=== PATIENT | male | born 1955 | race Caucasian/White ===

== ENCOUNTER 2021-06-26 08:14 | Inpatient (IN) | payer OTHER ==
[2021-06-26] VITALS (25 sets, daily range): BP systolic 98–173; BP diastolic 46–97
[~2021-06-26] VITALS: Ht 167.6 cm; Wt 40.4 kg
[2021-06-26] MEDS ORDERED: LORAZEPAM INJ 2 MG/ML VIAL ONE (08:16)
--- NOTE | 2021-06-26 08:19 | NUR ---
PT INTUBATED USING 7.5 ET. AT 20 AT THE LIP. POSITIVE COLOR CHANGE ON THE CAPTOMETER W/ EQUAL CHEST RISE NOTED. 0822- EPI GIVEN 0823- CALCIUM GIVEN, NOTED V TACH RATE 137 0828- AMIODARONE GIVEN 0831- CALCIUM GIVEN 0835- STARTED ON MAGNESIUM MAGNESIUM 2GMS 0844- LEVOPHED DRIP STARTED AT 1MCG/KG/MIN 0845- EPI GIVEN
--- NOTE | 2021-06-26 08:26 | NUR ---
ICU BED REQUESTED.
[2021-06-26] MEDS ORDERED: CALCIUM CHLORIDE 1,000 MG/10 ML DISP.SYRIN ONE (08:30)
[2021-06-26] MEDS ORDERED: PIPERACILLIN /TAZOBACTAM 3.375 G in IV D5W 50 ML IV ONE (08:30)
[2021-06-26] MEDS ORDERED: CALCIUM CHLORIDE 1,000 MG/10 ML DISP.SYRIN IV ONE ×3 (08:30→12:53)
[2021-06-26] MEDS ORDERED: ETOMIDATE 2 MG/ML VIAL IV ONE ×2 (08:30→12:55)
[2021-06-26] MEDS ORDERED: VANCOMYCIN HCL 1.25 GM in IV D5W 260 ML IV ONE (08:30)
[2021-06-26] MEDS ORDERED: LORAZEPAM INJ 2 MG/ML VIAL IV ONE (08:30)
[2021-06-26] MEDS ORDERED: ROCURONIUM BROMIDE 50 MG/5 ML IV ONE ×2 (08:30→12:55)
[2021-06-26] MEDS ORDERED: Magnesium 1GM/D5W 100ML PREMIX 200 ML IV ONE (08:32)
[2021-06-26] MEDS: Magnesium 1GM/D5W 100ML PREMIX 100 ML IV SCH (08:35)
--- NOTE | 2021-06-26 08:40 | NUR ---
RT NOTE PT ORALLY INTUBATED VIA 7.5 ETT @ 20CM LIPLINE BY MD ELIAS. BILATERAL BREATH SOUNDS AND CHEST RISE NOTED. POSITIVE COLOR CHANGE CO2 DETECTOR. ETT PATENT AND SECURED VIA ANCHOR FAST. VENT PLUGGED INTO RED OUTLET. AMBU BAG AT BEDSIDE. ALARMS ARE ON AND AUDIBLE. WILL CONTINUE TO MONITOR.
[2021-06-26 08:44] LABS: BASOPHILS % (AUTO) 0.4 % (0.0-2.0); EOSINOPHILS % (AUTO) 0.8 % (0.0-6.0); HEMATOCRIT 30 % (39-51); HEMOGLOBIN 9.4 g/dL (13.5-17.5); LYMPHOCYTES # (AUTO) 0.8 K/uL (0.8-4.8); LYMPHOCYTES % (AUTO) 6.9 % (20.0-44.0); MEAN CORPUSCULAR HGB CONC 32 g/dl (31.0-36.0); MEAN CORPUSCULAR VOLUME 95 fL (80-96); MONOCYTES # (AUTO) 0.5 K/uL (0.1-1.30); MONOCYTES % (AUTO) 4.1 % (2.0-12.0); NEUTROPHILS # (AUTO) 9.9 K/uL (1.8-8.9); NEUTROPHILS % (AUTO) 87.8 % (43.0-81.0); PLATELET COUNT (AUTO) 319 K/uL (150-450); RED BLOOD CELL COUNT(AUTO) 3.14 MIL/uL (4.5-6.0); WHITE BLOOD COUNT (AUTO) 11.3 K/uL (4.3-11.0)
--- NOTE | 2021-06-26 08:55 | NUR ---
SEE CPR RECORD
[2021-06-26 08:59] LABS: ALANINE AMINOTRANSFERASE 26 U/L (12-78); ALKALINE PHOSPHATASE 518 U/L (46-116); ASPARTATE AMINOTRANSFERASE 52 U/L (15-37); BILIRUBIN,DIRECT 0.5 mg/dL (0.0-0.2); BILIRUBIN,TOTAL 0.8 mg/dL (0.2-1.0); CALCIUM, SERUM 12.1 mg/dL (8.5-10.1); CARBON DIOXIDE 15 mmol/L (21-32); CHLORIDE 98 mmol/L (98-107); GLUCOSE 122 mg/dL (74-106); SODIUM SERUM 137 mmol/L (136-145); TOTAL PROTEIN, SERUM 8.8 g/dL (6.4-8.2)
[2021-06-26] MEDS ORDERED: EPINEPHRINE (1:1000) 5 MG in IV NS 0.9% 250 ML IV PRN (09:00)
[2021-06-26] MEDS ORDERED: IV LIDOCAINE HCL/D5W/PF/500ML 2,000 MG in PREMIX 1 EA IV PRN (09:00)
[2021-06-26] MEDS ORDERED: NOREPINEPHRINE 8 MG in IV NS 0.9% 250 ML IV ONE (09:00)
[2021-06-26] MEDS ORDERED: PROCAINAMIDE HCL 500 MG/ML VIAL IVP ONE (09:00)
[2021-06-26] MEDS ORDERED: AMIODARONE 450 MG in IV D5W 250 ML IV ONE (09:00)
--- NOTE | 2021-06-26 09:02 | NUR ---
PAGED DR. COBB. NOW HAS SPOKEN TO DR. ELIAS
[2021-06-26 09:17] LABS: CREATININE 8.5 mg/dL (0.6-1.3); POTASSIUM 7.3 mmol/L (3.5-5.1); UREA NITROGEN, BLOOD 122 mg/dL (7-18)
--- NOTE | 2021-06-26 09:25 | NUR ---
PAGED DR. HOOVER. NOW SPEAKING TO DR. ELIAS.
--- NOTE | 2021-06-26 09:32 | NUR ---
ETA 12NOON FOR PICCLINE NURSE PER NURSING FOUNDER.
[2021-06-26 09:36] LABS: SERUM AMMONIA 39 umol/L (11-32)
[2021-06-26] MEDS ORDERED: HEPARIN SUBCUT (09:37)
[2021-06-26] MEDS ORDERED: SEVE800T8 PO (09:37)
[2021-06-26] MEDS ORDERED: FERR325T23 PO (09:37)
[2021-06-26] MEDS ORDERED: VANCOMYCIN PO (09:37)
[2021-06-26] MEDS ORDERED: FOLI0.8T2 PO (09:37)
[2021-06-26] MEDS ORDERED: TAMS-12 PO (09:37)
[2021-06-26] MEDS ORDERED: LABE100T5 PO (09:37)
[2021-06-26] MEDS ORDERED: MAGN400O6 PO (09:37)
[2021-06-26] MEDS ORDERED: INSU100V3 IJ (09:37)
[2021-06-26] MEDS ORDERED: FOLI0.8T3 PO (09:37)
[2021-06-26] MEDS ORDERED: SODI10PO PO (09:37)
[2021-06-26] MEDS ORDERED: ERGO500093 PO (09:37)
[2021-06-26] MEDS ORDERED: OMEP20TA20 PO (09:37)
[2021-06-26] MEDS ORDERED: NIFE60TA73 PO (09:37)
[2021-06-26] MEDS ORDERED: ACET325T53 PO (09:37)
[2021-06-26] MEDS ORDERED: RIFA300C4 PO (09:37)
[2021-06-26] MEDS ORDERED: SENN-175 PO (09:37)
[2021-06-26] MEDS ORDERED: HYDR-4303 PO (09:37)
[2021-06-26 09:52] LABS: ABG OXYGEN SATURATION 98.4 % (92.0-98.5); ABG PCO2 41.8 mmHg (35.0-45.0); ABG PH 7.004 (7.350-7.450); ABG PO2 319.6 mmHg (75.0-100.0); AaDO2 351.6 mmHg; COHb 0.2 % (0.5-1.5); O2Hb 98.2 % (94.0-97.0); PEEP,BG 5 cm H2O; SITE, ABG Right Radial; VT, ABG 450 mL
--- NOTE | 2021-06-26 10:00 | NUR ---
PAGED DR. DAVID. NOW SPEAKING TO DR. ELIAS.
[2021-06-26] MEDS ORDERED: EPINEPHRINE (1:10,000) SYRINGE 1 MG/10 ML DISP.SYRIN IV ONE ×2 (10:30)
--- NOTE | 2021-06-26 10:40 | NUR ---
PICC LINE INSERTED ON HUNG
--- NOTE | 2021-06-26 11:20 | NUR ---
DR. DAVID AT BEDSIDE.
--- NOTE | 2021-06-26 11:50 | NUR ---
RECEIVED PT FROM ER VIA [facility] ACCOMPANIED BY NURSE AND RT PT IS ORALLY INTUBATED, VENT SETTING MD ORDER FIO2 50% SPO2 94% NO SIGN OF DISTRESS, PT IS REACTING TO DEEP STIMULI CURRENTLY PT IS NOT ON SEDATION, BREATHING IS UNLABORED SAFELY TRANSFER FROM [facility] TO BED, HOOKED TO MONITOR WITH READING SINUS OBED 40-50 WITH INVERTED TWAVE, PT IS WITH ONGOING AMIODARONE @ 1MG/MIN INFUSING VIA HUNG PICC LINFUSING WELL, ASK DIE CAST ENGINEER WHATS THE DR SAYS ABOUT THE AMIODARONE DUE TO PT HR IS ON LOW 50'S PER KITTY DAVID SAID THAT AMIODAONE WILL BE CONTINUE UNTIL PT GET HIS DIALYSIS EVEN THOUGH PT HR IS ON LOW 50'S, HEAD TO TOE ASSESSMENT DONE, V/S CHECKED AND RECORDED, INITIAL ADMISSION DONE, ACUTE MEDICAL RESTRAINTS INITIATED PER MD ORDER FOR SELF EXTUBATION PRECAUTION, BED ON LOWEST POSITION AND LOCKED SIDE RAILS UP X2 CALL LIGHT WITHIN REACH WILL CONT TO MONITOR
--- NOTE | 2021-06-26 11:56 | NUR ---
PATIENT TRANSFERRED TO ROOM 260 VIA ACLS PROTOCOL. PATIENT IN GUARDED CONDITION. DIALYSIS NURSE AWARE OF PATIENT'S ROOM #. DR. DAVID GAVE VERBAL INSTRUCTIONS TO KEEP AMIODARONE AT THIS TIME.
[2021-06-26] MEDS ORDERED: DEXTROSE 50%-WATER 50 ML DISP.SYRIN IV PRN (12:00)
[2021-06-26] MEDS: AMIODARONE 450 MG in IV D5W 241 ML IV PRN ×2 (12:00→14:32)
[2021-06-26] MEDS ORDERED: RIFAMPIN 600 MG in IV NS 0.9% 100 ML IV SCH (12:30)
[2021-06-26] MEDS: BLOOD SUGAR DIAGNOSTIC 1 EACH STRIP IN SCH ×3 (12:53→23:36)
[2021-06-26] MEDS: SODIUM POLYSTYRENE SULFONATE 15 G/60 ML BOTTLE PO SCH ×2 (12:53→18:10)
[2021-06-26] MEDS ORDERED: EPINEPHRINE (1:10,000) SYRINGE 1 MG/10 ML DISP.SYRIN IVP ONE (12:53)
[2021-06-26] MEDS ORDERED: AMIODARONE 150 MG/3 ML VIAL IV ONE (12:53)
[2021-06-26] MEDS: INSULIN REGULAR, HUMAN 100 UNIT/ML 3 ML VIAL SQ PRN ×2 (12:54→23:36)
[2021-06-26] MEDS ORDERED: VANCOMYCIN HCL 125 MG/2.5 ML ORAL.SUSP PO SCH (13:00)
[2021-06-26 13:16] LABS: ABG BASE EXCESS -16.5 mmol/L; ABG OXYGEN SATURATION 79.7 % (92.0-98.5); ABG PCO2 24.7 mmHg (35.0-45.0); ABG PH 7.213 (7.350-7.450); ABG PO2 61.2 mmHg (75.0-100.0); AaDO2 267.5 mmHg; COHb 0.4 % (0.5-1.5); MetHb 0.3 % (0.0-1.5); O2Hb 79.1 % (94.0-97.0); SITE, ABG Right Radial; VT, ABG 480 mL
--- NOTE | 2021-06-26 13:50 | NUR ---
REPORTED TO DR DAVID THAT PT IS STARTING TO WAKE UP AND HE IS BECOMING TACHYPNEIC WITH ORDER TO START PROPOFOL TO TITRATE PER PROTOCOL, ALSO HE ORDER HEPARIN 5000 UNITS Q12H AND PEPCID 10 MG Q12H NOTED AND CARRIED OUT
[2021-06-26] MEDS: VANCOMYCIN HCL 125 MG/2.5 ML ORAL.SUSP GT SCH ×3 (13:53→23:31)
[2021-06-26] MEDS: PROPOFOL 100 ML IV PRN ×2 (14:30→22:30)
[2021-06-26] MEDS: RIFAMPIN 300 MG CAPSULE GT SCH (14:59)
--- NOTE | 2021-06-26 15:53 | NUR ---
RECEIVED ORDER TO DR DAVID THAT MAY STOP AMIODARONE ONCE HD COMPLETED TODAY NOTED AND CARRIED OUT
--- NOTE | 2021-06-26 16:49 | NUR ---
HD COMPLETED, TOLERATING WELL TOTAL FLUID REMOVED 1700 ML, VS CHECKED AND RECORDED NO DISTRESS NOTED, MAY DC AMIODARONE DRIP WILL STOP NOW PER MD ORDER, WILL CONT TO MONITOR
[2021-06-26] MEDS: PIPERACILLIN /TAZOBACTAM 2.25 G in IV D5W 50 ML IV SCH (18:11)
[2021-06-26] MEDS: IV D5/0.45 NACL 1,000 ML IV PRN (18:54)
--- NOTE | 2021-06-26 19:30 | NUR ---
RN OPENING NOTES: RECEIVED SEDATED PT IN NO S/SX OF ACUTE DISTRESS AT THIS TIME. NO SOB NOTED. PATIENT'S BREATHING IS EVEN AND UNLABORED. PATIENT ON MECHANICAL VENT; SETTINGS PRESCRIBED; PT TOLERATED WELL. AMBU BAG AT BED SIDE ALARMS SET PER PROTOCOL AND AUDIBLE. VENT PLUGGED IN TO RED OUTLET. PATIENT ON TELE MONITORING READING SINUS RHYTHM HR IS @70s AT THE TIME OF RECEIVED. CURRENTLY ON NPO. WITH OGT IN PLACED; PLACEMENT VERIFIED VIA AUSCULTATION; CLAMPED AT THIS TIME. NOTED IV SITE: L AC#18 , R FA #18 AND L UA PICC LINE ; ALL PATENT, INTACT AND FLUSHING WELL; NO S/S OF INFECTION OR INFILTRATION. WITH IV FLUID RUNNING ORDERED. PT ALSO HAS L CHEST WALL HD CATH SECURED AND INTACT NO SIGNS OF INFECTION. PT HAS A RUNNING PROPOFOL AT 35MCG/KG/MIN MONITORED AND TITRATED PER PROTOCOL. DAVIS CATH IN PLACE,NO URINE OUTPUT NOTED. WITH BILATERAL SOFT RESTRAINTS IN PLACED, MONITORED AND ASSESSED PER PROTOCOL. SAFETY MEASURES HAVE BEEN PROVIDED AND IMPLEMENTED. PATIENT BED ALARM IS ON. HEAD OF BED ELEVATED. BED IS LOCKED, IN LOWEST POSITION AND SIDE RAILS UP. CALL LIGHT WITHIN REACH OF THE PATIENT. APPLICABLE ISOLATION PRECAUTIONS IN PLACE. WILL CONTINUE TO MONITOR AND REASSESS FOR ANY CHANGES AND WILL CARRY OUT ANY ONGOING AND ACTIVE MD ORDER.
--- NOTE | 2021-06-26 20:01 | NUR ---
RECEIVED PT INTUBATED ON [facility] VENT. ETT IS SECURED AT 23CM LIP LINE. VENT ALARMS SET AND AUDIBLE. SX'D SMALL AMT OF THIC YELLOW SECRETIONS. VENT PLUGGED INTO RED OUTLET. Addendum: 06/26/21 at 2002 by ADRIANNA ESTRADA RT Amended: Links added.
[2021-06-26] MEDS: FAMOTIDINE/PF INJ 20 MG/2 ML VIAL IV SCH (21:19)
[2021-06-26] MEDS: HEPARIN SODIUM, PORCINE 5000 UNITS/1 ML VIAL SQ SCH (21:23)
[2021-06-27] VITALS (42 sets, daily range): BP systolic 117–176; BP diastolic 57–84
--- NOTE | 2021-06-27 | NUR ---
RN NOTES PATIENT REMAINED TO BE IN NO SIGNS OF ACUTE RESPIRATORY DISTRESS , VITAL SIGNS WNL THIS TIME; CURRENT TEMP AT 99.4; COOLING MEASURES RENDERED. PAPER DELIVERER MADE AWARE. WILL CONTINUE TO MONITOR AND REASSESS FOR ANY CHANGES THROUGHOUT THE SHIFT.
[2021-06-27] MEDS: PIPERACILLIN /TAZOBACTAM 2.25 G in IV D5W 50 ML IV SCH ×3 (01:03→17:26)
--- NOTE | 2021-06-27 04:00 | NUR ---
RN NOTES NO NOTED CHANGES IN PATIENT CONDITION AT THIS TIME; PATIENT VITALS STABLE, NO SIGNS OF ACUTE RESPIRATORY DISTRESS. AM PATIENT CARE RENDERED. WILL CONTINUE TO MONITOR AND REASSESS FOR ANY CHANGES THROUGHOUT THE SHIFT.
[2021-06-27 05:05] LABS: THYROID STIMULATING HORMONE 3.516 uIU/mL (0.358-3.74)
[2021-06-27] MEDS: VANCOMYCIN HCL 125 MG/2.5 ML ORAL.SUSP GT SCH ×3 (05:08→17:25)
[2021-06-27] MEDS: BLOOD SUGAR DIAGNOSTIC 1 EACH STRIP IN SCH ×3 (05:16→18:16)
[2021-06-27] MEDS: INSULIN REGULAR, HUMAN 100 UNIT/ML 3 ML VIAL SQ PRN (05:16)
[2021-06-27 05:17] LABS: BILIRUBIN,TOTAL 0.8 mg/dL (0.2-1.0); CALCIUM, SERUM 7.5 mg/dL (8.5-10.1); CREATININE 4.3 mg/dL (0.6-1.3); MAGNESIUM 2.1 mg/dL (1.8-2.4); PHOSPHORUS 3.9 mg/dL (2.5-4.9); POTASSIUM 3.6 mmol/L (3.5-5.1); TOTAL PROTEIN, SERUM 6.3 g/dL (6.4-8.2)
--- NOTE | 2021-06-27 05:45 | NUR ---
RN NOTES RECEIVED CRITICAL LAB FROM [facility] (LAB) TROPONIN LEVEL @ 0.455. NOTIFIED DR DAVID; NO NEW ORDERS. BRAKE LINER MADE AWARE.
--- NOTE | 2021-06-27 05:51 | NUR ---
FiO2 titrated to 40% RN notified. O2 sat 100%.
[2021-06-27] MEDS: IV D5/0.45 NACL 1,000 ML IV PRN (06:01)
[2021-06-27] MEDS: PROPOFOL 100 ML IV PRN ×2 (06:13→15:00)
--- NOTE | 2021-06-27 06:51 | NUR ---
RN CLOSING NOTE: PATIENT REMAINS IN ROOM IN NO SIGNS OF RESPIRATORY DISTRESS, PATIENT STILL ON MECH VENT; SETTINGS PRESCRIBED;TOLERATING WELL SATURATING @ >95% SP02. SAFETY MEASURES IMPLEMENTED, BED IN LOWEST POSITION, LOCKED, SIDE RAILS UP, CALL LIGHT WITHIN REACH. ALL NEEDS AND ORDERS ADDRESSED DURING THE SHIFT. IV ACCESS MAINTAINED INTACT, SECURED AND FLUSHING WELL. ALL DUE MEDS GIVEN ORDERED & SCHEDULED ; PATIENT TOLERATED WELL. STILL WITH ONGOING PROPOFOL DRIP @35MCG/KG/MIN (9.5MLS/HR) RUNNING,MONITORED AND TITRATED PER PROTOCOL. PATIENT KEPT CLEAN AND COMFORTABLE WITHIN THE SHIFT. PATIENT ENDORSED TO INCOMING SHIFT RN WITH STABLE VITAL SIGN AND FOR CONTINUITY OF CARE.
--- NOTE | 2021-06-27 07:44 | NUR ---
NURSE OPENING NOTE. RECEIVE REPORT FROM EVENING SHIFT NURSE. PATIENT ON ETT WITH AC:28, TV:480, FIO2:50% PEEP:0. PATIENT IS SEDATED ON PROPOFOL AT 35MCG. NO SIGN OF DISTRESS. DAVIS IN PLACE. CURRENTLY NO DIET ORDER. BED IN LOWEST POSITION WITH 3 SIDE RAIL UP. HEAD OF THE BED ELEVATED. WILL CONTINUE TO MONITOR.
[2021-06-27 08:05] LABS: ABG BASE EXCESS 1.2 mmol/L; ABG OXYGEN SATURATION 97.6 % (92.0-98.5); ABG PCO2 24.3 mmHg (35.0-45.0); ABG PH 7.586 (7.350-7.450); AaDO2 126.3 mmHg; COHb 0.3 % (0.5-1.5); MetHb 0.1 % (0.0-1.5); O2Hb 97.2 % (94.0-97.0); SITE, ABG Right Radial; VENT MODE, BG AC 28 480 40%
[2021-06-27 08:15] LABS: BASOPHILS # (AUTO) 0.1 K/uL (0.0-0.2); EOSINOPHILS % (AUTO) 0.4 % (0.0-6.0); MEAN CORPUSCULAR HGB CONC 33 g/dl (31.0-36.0)
--- NOTE | 2021-06-27 09:00 | NUR ---
HEARING THERAPY TEACHER NOTES SEDATION VACATION
--- NOTE | 2021-06-27 09:16 | NUR ---
RN NOTES ABG RESULT RELAYED TO DR. SAMUEL. VENT CHANGE AC [address] SAMUEL ON VACATION. DR SALAZAR TO TAKE OVER.
[2021-06-27 09:19] LABS: BASOPHILS % (AUTO) 0.7 % (0.0-2.0); HEMATOCRIT 23 % (39-51); HEMOGLOBIN 7.4 g/dL (13.5-17.5); LYMPHOCYTES # (AUTO) 0.5 K/uL (0.8-4.8); LYMPHOCYTES % (AUTO) 3.5 % (20.0-44.0); MEAN CORPUSCULAR VOLUME 90 fL (80-96); MONOCYTES # (AUTO) 0.5 K/uL (0.1-1.30); MONOCYTES % (AUTO) 3.8 % (2.0-12.0); NEUTROPHILS % (AUTO) 91.6 % (43.0-81.0); PLATELET COUNT (AUTO) 285 K/uL (150-450); RED BLOOD CELL COUNT(AUTO) 2.52 MIL/uL (4.5-6.0); WHITE BLOOD COUNT (AUTO) 13.1 K/uL (4.3-11.0)
[2021-06-27] MEDS: FAMOTIDINE/PF INJ 20 MG/2 ML VIAL IV SCH ×2 (09:32→21:09)
[2021-06-27] MEDS: RIFAMPIN 300 MG CAPSULE GT SCH (09:32)
[2021-06-27] MEDS: HEPARIN SODIUM, PORCINE 5000 UNITS/1 ML VIAL SQ SCH ×2 (09:34→21:10)
--- NOTE | 2021-06-27 10:00 | NUR ---
RN NOTES DR. DAVID AT BEDSIDE. PLAN TO WEAN PATIENT AND FOR EXTUBATION. WAITING FOR CORRECTIONAL PROGRAM OFFICER
--- NOTE | 2021-06-27 11:00 | NUR ---
RN NOTES JACKI HELD FOR NOW. DR. SALAZAR TO SEE PATIENT.
--- NOTE | 2021-06-27 14:00 | NUR ---
RN NOTES JCAKI RESUMED
--- NOTE | 2021-06-27 18:46 | NUR ---
NURSE CLOSING NOTE PATIENT STABLE THROUGH OUT SHIFT. ALL DAY SHIFT MEDICATION WAS GIVEN. PROPOFOL DRIP LINE WAS CHANGED PER PROTOCOL. MAINTENANCE IV FLUID WAS CHANGED PER DOCTOR ORDER FROM 75ML/HR TO 50ML/HR. ALL VITAL SIGNS AND I&O HAVE BE DOCUMENTED. PATIENT ORAL GASTRIC TUBE RESIDUAL AT 17:00 WAS 80ML. ALL LINEN WAS CHANGED. GOWN WAS CHANGED. PATIENT WAS GIVEN A BED BATH. SKIN CLEAN AND INTACT. ALL SAFETY MEASURE IN PLACE. BED ON LOWEST POSITION WITH 3 SIDE RAIL UP. HEAD OF THE BED ELEVATED. PROPER ISOLATION PRECAUTION IN PLACE. WILL CONTINUE TO MONITOR AND ENDORSE TO ON COMING NURSE.
--- NOTE | 2021-06-27 20:00 | NUR ---
Patient sedated on diprivan gtt at 35 mcg.Orally intubated to mechanical vent on full vent support. No acute distress noted.SR per monitor.VS stable.OGT in place placement verified by auscultation and aspiration.Aspiration precaution maintained with HOB elevated.NPO status.FC to gravity no urine output noted at this time.HD patient with HD cath to left upper chest intact.IVF and Diprivan gtt infusing via HUNG PICC Line.Turned and repositioned off loading pressure points.
[2021-06-28] VITALS (25 sets, daily range): BP systolic 119–188; BP diastolic 59–103
--- NOTE | 2021-06-28 | NUR ---
Patient vs remains stable.No acute distress noted.Incontinent of stools perineal and bed bath rendered. Turned and repositioned.
[2021-06-28] MEDS: BLOOD SUGAR DIAGNOSTIC 1 EACH STRIP IN SCH ×4 (00:10→18:02)
[2021-06-28] MEDS: VANCOMYCIN HCL 125 MG/2.5 ML ORAL.SUSP GT SCH ×5 (00:11→23:02)
[2021-06-28] MEDS: PROPOFOL 100 ML IV PRN ×4 (00:57→23:12)
[2021-06-28] MEDS: IV D5/0.45 NACL 1,000 ML IV PRN ×2 (01:03→21:55)
[2021-06-28] MEDS: PIPERACILLIN /TAZOBACTAM 2.25 G in IV D5W 50 ML IV SCH ×3 (02:05→17:56)
[2021-06-28 04:59] LABS: BASOPHILS # (AUTO) 0.1 K/uL (0.0-0.2); BASOPHILS % (AUTO) 0.9 % (0.0-2.0); EOSINOPHILS % (AUTO) 2.4 % (0.0-6.0); HEMATOCRIT 22 % (39-51); HEMOGLOBIN 7.3 g/dL (13.5-17.5); LYMPHOCYTES # (AUTO) 0.5 K/uL (0.8-4.8); LYMPHOCYTES % (AUTO) 4.9 % (20.0-44.0); MEAN CORPUSCULAR HGB CONC 34 g/dl (31.0-36.0); MEAN CORPUSCULAR VOLUME 90 fL (80-96); MONOCYTES # (AUTO) 0.5 K/uL (0.1-1.30); MONOCYTES % (AUTO) 4.7 % (2.0-12.0); NEUTROPHILS # (AUTO) 9.3 K/uL (1.8-8.9); NEUTROPHILS % (AUTO) 87.1 % (43.0-81.0); PLATELET COUNT (AUTO) 263 K/uL (150-450); RED BLOOD CELL COUNT(AUTO) 2.42 MIL/uL (4.5-6.0); WHITE BLOOD COUNT (AUTO) 10.7 K/uL (4.3-11.0)
[2021-06-28 05:03] LABS: CALCIUM, SERUM 7.8 mg/dL (8.5-10.1); CREATININE 5.5 mg/dL (0.6-1.3); POTASSIUM 3.7 mmol/L (3.5-5.1)
--- NOTE | 2021-06-28 06:55 | NUR ---
Patient resting with stable vital signs.AM crae done.Blood sugar monitored its wnl.Diprivan gtt and IVF infusing well.BM x2 during the shift.Was tuned and repositioned Q 2 hrs.No significant change noted during the shift.Will endorse to day shift for VLADIMIR.
--- NOTE | 2021-06-28 07:05 | NUR ---
TRAINING SYSTEMS OFFICER NOTES RECEIVED PT SEDATED ON DIPRIVAN @40MCG/KG/MIN. ETT 7.5, AC: 18, TV: 450, FiO2: 40% TOLERATING VENT SETTINGS WELL. SR ON TELE MONITOR. NPO. OGT IN PLACE, AUSCULTATED AND CHECKED FOR POSITIVE PLACEMENT. HUNG PICC LINE AND RFA #18 BOTH INTACT AND FLUSHED. D5 1/2 NS @50ML/HR INFUSING WELL. LEFT UPPER CHEST WALL HD ACCESS IN PLACE. SAFETY MEASURES IN PLACE. BED LOCKED AND IN LOWEST POSITION WITH SIDE RAILS UP X3. WILL CONTINUE TO MONITOR.
[2021-06-28] MEDS: RIFAMPIN 300 MG CAPSULE GT SCH (09:34)
[2021-06-28] MEDS: FAMOTIDINE/PF INJ 20 MG/2 ML VIAL IV SCH ×2 (09:34→20:45)
[2021-06-28] MEDS: HEPARIN SODIUM, PORCINE 5000 UNITS/1 ML VIAL SQ SCH ×2 (09:35→20:46)
--- NOTE | 2021-06-28 10:45 | NUR ---
RN NOTES HD STARTED. VS STABLE.
--- NOTE | 2021-06-28 12:00 | NUR ---
RN NOTES BS OF 88, NO INSULIN COVERAGE.
[2021-06-28 12:23] LABS: EOSINOPHILS % (MANUAL) 3 % (0-4); LYMPHOCYTES % (MANUAL) 4 % (16-48); MONOCYTES % (MANUAL) 3 % (0-11.0); NEUTROPHILS % (MANUAL) 90 (42-76)
[2021-06-28] MEDS: INSULIN REGULAR, HUMAN 100 UNIT/ML 3 ML VIAL SQ PRN ×2 (12:35→18:03)
--- NOTE | 2021-06-28 13:45 | NUR ---
RN NOTES HD DONE. 2500 ML OUTPUT. VS STABLE.
--- NOTE | 2021-06-28 18:00 | NUR ---
RN NOTES BS OF 81, NO INSULIN COVERAGE.
--- NOTE | 2021-06-28 19:00 | NUR ---
RN NOTE RECEIVED PATIENT IN BED EYE CLOSED SEDATED ON MECHANICAL VENT ON DIPRIVAN @50MCG/KG/MIN,AND IV HYDRATION D51/2NS 50CC/HR IV SITE IS ON LEFT UPPER ARM MIDLINE AND RIGHT FOREARM INTACT PATENT.SOFT RESTRAIN IN PLACE,SAFETY MEASURE IMPLEMENT HEAD OF THE BED ELEVATED BED IN LOW POSITON AND LOCKED CONTINUE TO MONITOR.
--- NOTE | 2021-06-28 19:09 | NUR ---
WASHATERIA ATTENDANT NOTES PT SEDATED ON DIPRIVAN @50MCG/KG/MIN. TOLERATING VENT SETTINGS WELL. SR ON TELE MONITOR. ALL DUE MEDS GIVEN. KEPT CLEAN AND COMFORTABLE. 2500 ML OUTPUT ON HD. SAFETY MEASURES IN PLACE. BED LOCKED AND IN LOWEST POSITION WITH SIDE RAILS UP X3. ENDORSED TO NIGHT RN FOR VLADIMIR.
--- NOTE | 2021-06-28 21:00 | NUR ---
RN NOTE REPORT GIVEN TO TRINIDAD TANG.
[2021-06-28] MEDS: hydrALAZINE HCL IV 20 MG VIAL IV PRN (22:12)
[2021-06-29] VITALS (39 sets, daily range): BP systolic 98–171; BP diastolic 38–86
--- NOTE | 2021-06-29 00:26 | NUR ---
BUILD AUTOMATION ENGINEER NOTE POC GLUCOSE TAKEN, LEVEL 89 MG/DL. NO INSULIN COVERAGE NEEDED PER SLIDING SCALE.
[2021-06-29] MEDS: INSULIN REGULAR, HUMAN 100 UNIT/ML 3 ML VIAL SQ PRN ×2 (01:13→05:42)
[2021-06-29] MEDS: PIPERACILLIN /TAZOBACTAM 2.25 G in IV D5W 50 ML IV SCH ×3 (02:37→17:20)
[2021-06-29] MEDS: PROPOFOL 100 ML IV PRN (05:03)
[2021-06-29] MEDS: VANCOMYCIN HCL 125 MG/2.5 ML ORAL.SUSP GT SCH ×4 (05:29→23:40)
[2021-06-29 05:37] LABS: BASOPHILS # (AUTO) 0.1 K/uL (0.0-0.2); EOSINOPHILS % (AUTO) 4.7 % (0.0-6.0); HEMATOCRIT 24 % (39-51); HEMOGLOBIN 7.7 g/dL (13.5-17.5); LYMPHOCYTES # (AUTO) 0.4 K/uL (0.8-4.8); LYMPHOCYTES % (AUTO) 6.4 % (20.0-44.0); MEAN CORPUSCULAR HGB CONC 33 g/dl (31.0-36.0); MEAN CORPUSCULAR VOLUME 90 fL (80-96); MONOCYTES # (AUTO) 0.5 K/uL (0.1-1.30); MONOCYTES % (AUTO) 7.3 % (2.0-12.0); NEUTROPHILS # (AUTO) 5.5 K/uL (1.8-8.9); NEUTROPHILS % (AUTO) 80.6 % (43.0-81.0); PLATELET COUNT (AUTO) 265 K/uL (150-450); WHITE BLOOD COUNT (AUTO) 6.9 K/uL (4.3-11.0)
[2021-06-29] MEDS: BLOOD SUGAR DIAGNOSTIC 1 EACH STRIP IN SCH ×5 (05:42→23:53)
--- NOTE | 2021-06-29 05:43 | NUR ---
DIESEL INSTRUCTOR NOTE POC GLUCOSE TAKEN, LEVEL 90 MG/DL. NO INSULIN COVERAGE NEEDED PER SLIDING SCALE.
[2021-06-29 06:01] LABS: CALCIUM, SERUM 7.8 mg/dL (8.5-10.1); CREATININE 3.2 mg/dL (0.6-1.3); POTASSIUM 3.3 mmol/L (3.5-5.1)
--- NOTE | 2021-06-29 06:21 | NUR ---
CONFIGURATION RELEASE MANAGER CLOSING NOTES PT REMAINS IN BED SEDATED ON PROPOFOL DRIP @50MCG/KG/MIN. ETT WITH VENT SETTINGS FOLLOWS: 7.5/23CM AC 18 TV 450 FIO2 40% PEEP 5, TOLERATING VENT SETTINGS WELL. ON TELE MONITORING SR 60- 70'S. DAVIS CATHETER REMAINS IN PLACE WITH 10 ML OUTPUT, ENDORSED POSSIBLE NEED TO D/C PT CURRNELY ESRD ON HD, CHARGE NURSE ED AWARE AND STATED ENDORSEMENT TO BE COMPLETED TO MORNING SHIFT RN AND MD. (R) UA PICC, (R) FA #18, (L) AC #18 ALL FLUSHED AND PATENT WITH C/D/I DRESSINGS; D5W 1/2 NS RUNNING @ 50 ML/HR (L) CW HD CATH C/D/I. PATIENT KEPT CLEAN AND DRY. SOFT BILATERAL WRIST RESTRAINTS REMAIN IN PLACE FOR PT. SAFETY; SKIN AND CIRCULATION ASSESSMENT COMPLETED PER UNIT PROTOCL. ALL NEEDS AND ORDERS MET THROUGHOUT SHIFT. SAFETY MEASURES IN PLACE. BED LOCKED AND IN LOWEST POSITION, SIDE RAILS UP X3. WILL ENDORSE TO MORNING SHIFT RN. .
--- NOTE | 2021-06-29 07:00 | NUR ---
RN NOTE RECEIVED PATIENT IN BED SEDATED AND INTUBATED, DOES NOT FOLLOW COMMAND , EYE CLOSED, ON MECHANICAL VENT ON DIPRIVAN @50MCG/KG/MIN,AND IV HYDRATION D51/2NS 50CC/HR , ON TELE SR HR IN 60'S, IV SITE IS ON LEFT UPPER ARM MIDLINE AND RIGHT FOREARM INTACT PATENT.SOFT RESTRAIN IN PLACE,SAFETY MEASURE IMPLEMENT, HEAD OF THE BED ELEVATED, BED IN LOW POSITION AND LOCKED CONTINUE TO MONITOR.
[2021-06-29] MEDS: RIFAMPIN 300 MG CAPSULE GT SCH (08:12)
[2021-06-29] MEDS: FAMOTIDINE/PF INJ 20 MG/2 ML VIAL IV SCH ×2 (08:12→22:46)
[2021-06-29] MEDS: HEPARIN SODIUM, PORCINE 5000 UNITS/1 ML VIAL SQ SCH ×2 (08:15→22:47)
--- NOTE | 2021-06-29 09:00 | NUR ---
RN NOTES PT OFF SEDATION, FOLLOWS SIMPLE COMMANDS , TOLERATING VENT SETTING WELL, CONTINUE TO MONITOR.
--- NOTE | 2021-06-29 12:00 | NUR ---
RN NOTES ETT SUCTIONING DONE , SMALL AMOUNT OF SECRETION NOTED, CONTINUE TO MONITOR .
[2021-06-29] MEDS: POTASSIUM CL. PREMIX PERIPHER. 50 ML IV SCH ×2 (14:21→15:29)
[2021-06-29] MEDS: hydrALAZINE HCL IV 20 MG VIAL IV PRN (15:32)
--- NOTE | 2021-06-29 18:00 | NUR ---
RN NOTES PT REMAINS INTUBATED , OFF SEDATION , RESPONDS TO PAINFUL STIMULI, FOLLOWS SIMPLE COMMAND, ON TELE SR HR IN 60'S , SR UP x3, CALL LIGHT WITHIN EASY REACH, WILL ENDORSE TO INDUSTRIAL DESIGN ENGINEER NURSE FOR CONTINUITY OF CARE .
--- NOTE | 2021-06-29 19:30 | NUR ---
ASSUMED CARE OF PATIENT UNTIL HOIST WORKER RN CAN TAKE OVER CARE. PT APPEARS TO BE RESTING COMFORTABLY. VITAL SIGNS STABLE. WILL ENDORSE TO HOIST WORKER RN
[2021-06-29] MEDS: IV D5/0.45 NACL 1,000 ML IV PRN (23:38)
[2021-06-30] VITALS (33 sets, daily range): BP systolic 119–185; BP diastolic 48–88
--- NOTE | 2021-06-30 01:38 | NUR ---
precision agriculture specialist. received the pt rest on the bed, orally intubated. pt awake, open eyes. does not follow commands. v rt upper arm picc line. ivf d5 1/2 ns 50 ml/h. fc patent. anuric. hob elevated.ogt clamped. turn and reposition q2h will continue to monitor vitals.
[2021-06-30] MEDS: PIPERACILLIN /TAZOBACTAM 2.25 G in IV D5W 50 ML IV SCH ×3 (02:36→17:33)
--- NOTE | 2021-06-30 03:30 | NUR ---
horticulture teacher.am care given. remaining same vent settings tolerated well. sat 98%, no acute distress noted.coordinate measuring machine operator showing nsr,iv rt upper arm picc line. ivf d51/2ns 50ml/h.fc patent. anuric. hob elevated.ogt clamped. turn and reposition q2h.will continue to monitor vitals.
[2021-06-30 04:41] LABS: CALCIUM, SERUM 7.8 mg/dL (8.5-10.1); CREATININE 4.4 mg/dL (0.6-1.3); MAGNESIUM 2.1 mg/dL (1.8-2.4); POTASSIUM 3.6 mmol/L (3.5-5.1)
[2021-06-30] MEDS: VANCOMYCIN HCL 125 MG/2.5 ML ORAL.SUSP GT SCH ×4 (05:19→23:52)
[2021-06-30] MEDS: BLOOD SUGAR DIAGNOSTIC 1 EACH STRIP IN SCH ×4 (05:30→23:59)
--- NOTE | 2021-06-30 07:30 | NUR ---
RN NOTE PT ON MECHANICAL VENTILATOR PER MD ORDER, SETTINGS .02/16 AT THE LIP, AC 18, TV 450, FIO2 30%, PEEP 0, SPO2 100%, BREATHING EVEN AND UNLABORED, NO S/S OF RESP DISTRESS OR SOB. PT NEURO STATUS, PT ABLE TO OPEN/CLOSE EYES WHEN PROMPTED BUT UNABLE TO TRACK, BILAT OPTICAL MANUFACTURING TECHNICIAN STRENGTH INTACT ALTHOUGH WEAK. PT BILAT SOFT WRIST RESTRAINTS ON, BILAT CMS INTACT. PT NSR IN 70s ON BEDSIDE MONITOR. PT HUNG PICC INFUSING D5 1/2 NS @ 50 ML/HR, RFA #18 SL, LAC #18 SL, ALL FLUSHED AND INTACT WITH NO S/S OF INFECTION OR INFILTRATION. PT OGT AUSCULTATED FOR POSITIVE PLACEMENT, NO RESIDUALS NOTED. PT DAVIS CATH IN PLACE, TRUPTI URINE WITH SEDIMENT NOTED, ALTHOUGH ONLY 20cc SEEN. PT SACRAL REDNESS NOTED, COVERED IN MEPILEX. PT BLE CONTRACTED. ALL PT SAFETY PRECAUTIONS IN PLACE, WILL CONT TO MONITOR
[2021-06-30 08:08] LABS: ABG BASE EXCESS -1.3 mmol/L; ABG OXYGEN SATURATION 98.3 % (92.0-98.5); ABG PCO2 33.7 mmHg (35.0-45.0); ABG PH 7.439 (7.350-7.450); ABG PO2 149.2 mmHg (75.0-100.0); AaDO2 97.2 mmHg; COHb 0.6 % (0.5-1.5); MetHb 0.1 % (0.0-1.5); O2Hb 97.6 % (94.0-97.0); SITE, ABG Right Radial
[2021-06-30] MEDS: RIFAMPIN 300 MG CAPSULE GT SCH (08:26)
[2021-06-30] MEDS: FAMOTIDINE/PF INJ 20 MG/2 ML VIAL IV SCH ×2 (08:27→21:24)
--- NOTE | 2021-06-30 08:37 | NUR ---
WOUND CARE CONSULT: PT PRESENTS CACHECTIC WITH SACRAL SCARRING AND SOME DISCOLORATION AROUND SCAR. RECOMMENDATIONS MADE FOR SKIN PROTECTION. DISCUSSED WITH NURSING STAFF. PT IS ON FIRST STEP BR[facility]STENS[facility] MD IN AGREEMENT WITH PLAN OF CARE. Addendum: 06/30/21 at 0838 by MIREILLE SANDRA WNDNU Amended: Links added.
[2021-06-30] MEDS: Z GUARD REMEDY 2 OZ OINT TP SCH (09:00)
[2021-06-30] MEDS ORDERED: Z GUARD REMEDY 2 OZ OINT TP PRN (09:00)
[2021-06-30 09:07] LABS: BASOPHILS # (AUTO) 0.1 K/uL (0.0-0.2); BASOPHILS % (AUTO) 1.2 % (0.0-2.0); EOSINOPHILS % (AUTO) 5.2 % (0.0-6.0); HEMATOCRIT 25 % (39-51); HEMOGLOBIN 8.1 g/dL (13.5-17.5); LYMPHOCYTES # (AUTO) 0.4 K/uL (0.8-4.8); LYMPHOCYTES % (AUTO) 5.6 % (20.0-44.0); MEAN CORPUSCULAR HGB CONC 33 g/dl (31.0-36.0); MEAN CORPUSCULAR VOLUME 91 fL (80-96); MONOCYTES # (AUTO) 0.7 K/uL (0.1-1.30); MONOCYTES % (AUTO) 9.4 % (2.0-12.0); NEUTROPHILS % (AUTO) 78.6 % (43.0-81.0); PLATELET COUNT (AUTO) 233 K/uL (150-450); WHITE BLOOD COUNT (AUTO) 7.6 K/uL (4.3-11.0)
[2021-06-30] MEDS: HEPARIN SODIUM, PORCINE 5000 UNITS/1 ML VIAL SQ SCH ×2 (11:31→21:26)
[2021-06-30] MEDS ORDERED: SEVELAMER CARBONATE 800 MG TABLET PO SCH ×2 (13:00)
[2021-06-30] MEDS: hydrALAZINE HCL IV 20 MG VIAL IV PRN (13:20)
[2021-06-30] MEDS: SEVELAMER CARBONATE 800 MG POWD.PACK GT SCH ×2 (14:03→17:33)
--- NOTE | 2021-06-30 14:15 | NUR ---
RN NOTE PT TOLERATED HD WELL, 1L REMOVED. HYDRALIZINE 10MG GIVEN FOR SBP >180. CURRENT BP 145/75, HR 81. PT PLACED ON CPAP MODE BY RT PER DR ROJAS ORDER, SPO2 100%, RR 14-16. 1000 ZOSYN STARTED NOW. WILL CONT TO MONITOR
[2021-06-30 14:54] LABS: ABG OXYGEN SATURATION 96.2 % (92.0-98.5); ABG PCO2 37.4 mmHg (35.0-45.0); ABG PH 7.513 (7.350-7.450); ABG PO2 88.8 mmHg (75.0-100.0); AaDO2 81.2 mmHg; COHb 0.3 % (0.5-1.5); MetHb 0.3 % (0.0-1.5); O2Hb 95.6 % (94.0-97.0); SITE, ABG Right Radial; VENT MODE, BG CPAP 10 +5 30%
[2021-06-30] MEDS ORDERED: DC PROPOFOL WHEN EXTUBATED XX PRN (14:58)
--- NOTE | 2021-06-30 15:07 | NUR ---
RN NOTE PT EXCUBATED BY RT PER DR'S ORDER @ 1500, PLACED ON NC 2L, SPO2 100%, RR 15, BREATHING EVEN AND UNLABORED, NO S/S OF RESP DISTRESS OR SOB. BP 132/62, HR 77. PT ABLE TO SPEAK AND MADE NEEDS KNOWN, WILL CONT TO MONITOR
[2021-06-30] MEDS ORDERED: EPOETIN ALFA-EPBX 4,000 UNIT/ML VIAL IV SCH (16:30)
--- NOTE | 2021-06-30 17:27 | NUR ---
RN NOTE DR DAVID INFORMED OF PT OGT REMOVED DURING EXTUBATION. PER DR DAVID, OKAY IF PT MISSES SCHEDULED 1800 PO VANCO DOSE. PT SCHEDULED FOR ST SWALLOW EVAL AND DIETARY CONSULT TOMORROW
--- NOTE | 2021-06-30 18:50 | NUR ---
MID LEVEL PROJECT MANAGER NOTE PT TOLERATED EXTUBATION WELL, A/Ox2 WITH PERIODS OF CONFUSION, SPO2 100% ON NC 2L, NO S/S OF SOB OR RESP DISTRESS. D5 1/2 NS RUNNING @ 50 ML/HR. PT SWALLOW EVAL AND PEN AND PENCIL REPAIRER CONSULT FOR TOMORROW. ALL PT SAFETY PRECAUTIONS IN PLACE, WILL ENDORSE VLADIMIR TO ONCOMING NURSE
--- NOTE | 2021-06-30 19:25 | NUR ---
RN NOTES RECEIVED PATIENT AWAKE ON BED. RESPONSIVE TO TACTILE AND VERBAL STIMULI. S/P INTUBATION THIS MORNING. AOX 2 SR ON MONITOR. WITH O2 2 LPM VIA NC TOLERATED WELL SATURATION 97%. S/P DIALYZE TODAY REMOVED 1LITER PER PREVE. NURSE. VSS. AFEBRILE. NO SOB OR RESPIRATORY DISTRESS. IV SITE ON HUNG PICC LINE WITH D5 1/2 NS @ 50 ML/HR IV RFA G 18 AND LAC G 18 ARE ALL INTACT AND PATENT. TURN AND REPOSITION FOR COMFORT. KEPT PT CLEAN AND DRY. WILL CONTINUE POC.
[2021-06-30] MEDS: IV D5/0.45 NACL 1,000 ML IV PRN (21:19)
--- NOTE | 2021-06-30 21:32 | NUR ---
SPOKE WITH DR. FRANKIE LANDRY TO UPGRADE PATIENT TO PUREE DIET. PATIENT ABLE TO TOLERATE WATER, NO COUGHING NOTED.
[2021-07-01] VITALS (19 sets, daily range): BP systolic 121–167; BP diastolic 60–89
[2021-07-01] MEDS: INSULIN REGULAR, HUMAN 100 UNIT/ML 3 ML VIAL SQ PRN
[2021-07-01] MEDS: PIPERACILLIN /TAZOBACTAM 2.25 G in IV D5W 50 ML IV SCH ×3 (01:57→17:27)
[2021-07-01 04:27] LABS: BASOPHILS # (AUTO) 0.1 K/uL (0.0-0.2); BASOPHILS % (AUTO) 1.3 % (0.0-2.0); HEMATOCRIT 22 % (39-51); HEMOGLOBIN 7.3 g/dL (13.5-17.5); LYMPHOCYTES # (AUTO) 0.5 K/uL (0.8-4.8); LYMPHOCYTES % (AUTO) 9.9 % (20.0-44.0); MEAN CORPUSCULAR HGB CONC 34 g/dl (31.0-36.0); MEAN CORPUSCULAR VOLUME 90 fL (80-96); MONOCYTES # (AUTO) 0.6 K/uL (0.1-1.30); MONOCYTES % (AUTO) 12.1 % (2.0-12.0); NEUTROPHILS # (AUTO) 3.7 K/uL (1.8-8.9); NEUTROPHILS % (AUTO) 69.7 % (43.0-81.0); PLATELET COUNT (AUTO) 192 K/uL (150-450); RED BLOOD CELL COUNT(AUTO) 2.41 MIL/uL (4.5-6.0); WHITE BLOOD COUNT (AUTO) 5.4 K/uL (4.3-11.0)
[2021-07-01 04:40] LABS: POTASSIUM 3.4 mmol/L (3.5-5.1)
--- NOTE | 2021-07-01 05:09 | NUR ---
RN NOTE PATIENT COMPLAINED OF 8/10 CHEST PAIN, STAT EKG RESULTS RELAYED TO DR. DAVID WITH NEW ORDERS FOR TYLENOL 650 MG Q6H PRN, NORCO 5/325MG Q4H PRN, AND PROTONIX 40MG DAILY. NOTED AND CARRIED OUT. WILL CONTINUE TO MONITOR.
[2021-07-01] MEDS: VANCOMYCIN HCL 125 MG/2.5 ML ORAL.SUSP GT SCH ×4 (05:29→23:45)
[2021-07-01] MEDS: HYDROCODONE/APAP 5/325MG TABLET PO PRN ×2 (05:30→21:15)
[2021-07-01] MEDS: BLOOD SUGAR DIAGNOSTIC 1 EACH STRIP IN SCH ×4 (05:39→23:58)
--- NOTE | 2021-07-01 06:51 | NUR ---
RN NOTE PATIENT ALERT AND ORIENTED X2-3. SR ON MONITOR. ON O2 2 LPM VIA NASAL CANNULA, O2 SAT 100%. IV SITE ON HUNG PICC LINE WITH D5 1/2 NS @ 50 ML/HR IV RFA #18 AND LAC #18, INTACT AND PATENT. TURN AND REPOSITION FOR COMFORT. KEPT CLEAN AND DRY. BED LOCKED AND IN LOWEST POSITION. WILL ENDORSE TO AM SHIFT.
--- NOTE | 2021-07-01 07:19 | NUR ---
WOUND CARE CONSULT: PT SEEN FOR SACRAL DEEP TISSUE INJURY IN EVOLUTION OVER PREVIOUS SCARRING. PT IS EXTREMELY THIN AND BONY WITH MULTIPLE CO-MORBIDITIES INCLUDING S/P CARDIOPULMONARY ARREST(PREVIOUSLY INTUBATED), PNEUMONIA, SHOCK WITH SEVERE METABOLIC ACIDOSIS, DIABETES, END STAGE RENAL FAILURE (ON HEMODIALYSIS), ANOXIC ENCEPHALOPATHY, ANEMIA AND SEVERE MALNUTRITION. DUE TO MULTIPLE CO-MORBIDITIES, FURTHER SKIN BREAKDOWN MAY BE UNAVOIDABLE. RECOMMENDATIONS MADE FOR SKIN PROTECTION AND WOUND CARE. DISCUSSED WITH NURSING STAFF. SURGICAL CONSULT REQUESTED FROM DR ZUNIGA. PT IS ON FIRST STEP [facility]. IN AGREEMENT WITH PLAN OF CARE. MD IN AGREEMENT WITH PLAN OF CARE. Addendum: 07/01/21 at 0723 by MIREILLE SANDRA WNDNU Amended: Links added.
--- NOTE | 2021-07-01 08:03 | NUR ---
CERAMIC TILER NOTE PATIENT IN BED , ON 2L NC NO SOB NOTED AT THIS TIME SATURATION 966 AT THIS TIME, ON TELE MONITOR SR , RT UA PICC LINE IN PLACE , ON IVF ORDERED, LT CW HD CATH IN PLACE FED PATIENT ABLE TO EAT 75% OF FOOD , BED IN LOWEST AND LOCKED POSITION , WITH DAVIS TO NO URINE NOTED AT THIS TIME , ST AT BEDSIDE , ALL NEEDS ATTENDED WILL MONITOR
[2021-07-01] MEDS: PANTOPRAZOLE 40 MG/PACK PACK PO SCH (08:12)
[2021-07-01] MEDS: RIFAMPIN 300 MG CAPSULE GT SCH (08:12)
[2021-07-01] MEDS: TAMSULOSIN 0.4 MG CAP.SR.24H PO SCH (08:12)
[2021-07-01] MEDS: HEPARIN SODIUM, PORCINE 5000 UNITS/1 ML VIAL SQ SCH ×2 (08:13→20:34)
[2021-07-01] MEDS: SEVELAMER CARBONATE 800 MG POWD.PACK GT SCH ×3 (08:15→17:28)
[2021-07-01] MEDS: Z GUARD REMEDY 2 OZ OINT TP SCH (08:24)
--- NOTE | 2021-07-01 08:25 | NUR ---
senior agricultural assistant note hg 7.[address] franklin ok to give heparin sq
--- NOTE | 2021-07-01 08:36 | NUR ---
floriculture professor note dr santana notified about k 3.4 no new order given for k replacement
--- NOTE | 2021-07-01 09:39 | NUR ---
forester silviculture note consent for ct angio obtained spoke with son
--- NOTE | 2021-07-01 11:00 | NUR ---
agriculturist note per dr cui ok to do ct angio and hd will be done tomorrow
--- NOTE | 2021-07-01 11:34 | NUR ---
manager agricultural note transferred to tele unit with stable condition by acls protocol by bed with stable condition ,report given to Thomas rn ,
--- NOTE | 2021-07-01 11:45 | NUR ---
CREDIT COORDINATOR NOTE PT RECEIVED FROM ICU IN BED. A/O X 2. PT IS ON 2L O2 NASAL CANULA SATURATING AT 97%, WITH NO RESP DISTRESS. ABLE TO EXPRESS NEEDS, IV ACCESS ON LEFT AC G 18, RIGHT FA G 18, AND RUGHT UPPER ARM PICC LINE WITH D5NS RUNNING AT 50ML/HR. PATIENT WITH LEFT CHEST WALL CATHETER FRO HD. DRESSING DRY AND INTACT. PATIENT DENIES PAIN AT THIS TIME. ALL SAFETY MEASURES ENSURED WITH BED AT LOWEST AND LOCKED POSITION. SIDERAILS RAISED X 2. CALL LIGHT AND TABLE WITHIN REACH AT ALL TIMES. WILL CONTINUE TO MONITOR PATIENT.
[2021-07-01] MEDS: ENSURE ENLIVE 237 ML LIQUID (VANILLA) PO SCH ×2 (13:06→17:48)
--- NOTE | 2021-07-01 19:28 | NUR ---
DIRECTOR OF RESIDENTIAL SERVICES OPENING NOTE PATIENT A/O X 2. PT IS ON 2L O2 NASAL CANULA SATURATING AT 98%, WITH NO RESP DISTRESS. ABLE TO EXPRESS NEEDS, IV ACCESS ON LEFT AC G 18, RIGHT FA G 18, AND RIGHT UPPER ARM PICC LINE WITH D5NS RUNNING AT 50ML/HR. PATIENT WITH LEFT CHEST WALL CATHETER FRO HD. DRESSING DRY AND INTACT. PATIENT DENIES PAIN AT THIS TIME. ALL SAFETY MEASURES ENSURED WITH BED AT LOWEST AND LOCKED POSITION. SIDERAILS RAISED X 2. CALL LIGHT AND TABLE WITHIN REACH AT ALL TIMES. WILL ENDORSE FOR CONTINUITY OF CARE. Addendum: 07/01/21 at 1929 by MIKA DUBON RN CLOSING NOTE
--- NOTE | 2021-07-01 19:30 | NUR ---
RN OPENING NOTE PATIENT IN BED, AWAKE. PATIENT IS A/O X 1-2 AT THIS TIME. PATIENT ON 2 L OXYGEN SUPPLEMENTATION VIA NC. PATIENT'S TELE MONITOR READS SR 70 WITH INVERTED T WAVE. PATIENT DOES NOT COMPLAIN OF ANY PAIN AT THIS TIME. PATIENT HAS BILATERAL SOFT WRIST RESTRAINTS. IV ACCESS ALL PATENT AND INTACT. DAVIS CATHETER IN PLACE DRAINING YELLOW URINE. SAFETY MEASURES IN PLACE: BED LOCKED AND IN LOWEST POSITION, SIDE RAILS UP, CALL LIGHT WITHIN REACH, WILL CONTINUE TO MONITOR BEHAVIOR Q2H.
--- NOTE | 2021-07-01 20:38 | NUR ---
RN NOTE HEPARIN HELD FOR PROCEDURE IN AM
--- NOTE | 2021-07-01 21:15 | NUR ---
RN NOTE NORCO 5/325 GIVEN FOR CHEST PAIN + ABDOMINAL AREA PAIN. WILL REASSESS MED EFFECTIVENESS.
[2021-07-01] MEDS: ACETAMINOPHEN 325 MG TABLET PO PRN (23:44)
--- NOTE | 2021-07-01 23:44 | NUR ---
RN NOTE PATIENT GIVEN TYLENOL FOR MILD BACK PAIN. WILL REASSESS PAIN AT A LATER TIME
--- NOTE | 2021-07-01 23:45 | NUR ---
RN NOTE BS 73 MG/DL. SNACKS AND JUICE PROVIDED. WILL MONITOR FOR SYMPTOMS OF HYPOGLYCEMIA
[2021-07-02] VITALS (7 sets, daily range): BP systolic 104–165; BP diastolic 57–93
[2021-07-02] MEDS: PIPERACILLIN /TAZOBACTAM 2.25 G in IV D5W 50 ML IV SCH ×3 (01:43→18:39)
[2021-07-02] MEDS: hydrALAZINE HCL IV 20 MG VIAL IV PRN (03:48)
--- NOTE | 2021-07-02 03:48 | NUR ---
RN NOTE HYDRALAZINE IV PRN GIVEN 164/88 BP. WILL REASSESS.
[2021-07-02] MEDS: BLOOD SUGAR DIAGNOSTIC 1 EACH STRIP IN SCH ×4 (05:29→23:49)
[2021-07-02] MEDS: VANCOMYCIN HCL 125 MG/2.5 ML ORAL.SUSP GT SCH ×4 (05:29→23:40)
[2021-07-02] MEDS: IV D5/0.45 NACL 1,000 ML IV PRN (06:08)
[2021-07-02 06:23] LABS: BASOPHILS # (AUTO) 0.1 K/uL (0.0-0.2); BASOPHILS % (AUTO) 2.3 % (0.0-2.0); EOSINOPHILS % (AUTO) 10.4 % (0.0-6.0); HEMATOCRIT 24 % (39-51); LYMPHOCYTES # (AUTO) 0.6 K/uL (0.8-4.8); LYMPHOCYTES % (AUTO) 12.2 % (20.0-44.0); MEAN CORPUSCULAR HGB CONC 33 g/dl (31.0-36.0); MEAN CORPUSCULAR VOLUME 92 fL (80-96); MONOCYTES # (AUTO) 0.6 K/uL (0.1-1.30); MONOCYTES % (AUTO) 12.9 % (2.0-12.0); NEUTROPHILS % (AUTO) 62.2 % (43.0-81.0); PLATELET COUNT (AUTO) 180 K/uL (150-450); RED BLOOD CELL COUNT(AUTO) 2.63 MIL/uL (4.5-6.0); WHITE BLOOD COUNT (AUTO) 4.8 K/uL (4.3-11.0)
--- NOTE | 2021-07-02 06:35 | NUR ---
RN CLOSING NOTE PATIENT IN BED, EYES CLOSED, EASILY AROUSED. A/O X 1-2 AT THIS TIME. PATIENT IS CURRENTLY ON 2 L OF O2 SUPPLEMENTATION TOLERATING WELL WITH NO RESPIRATORY DISTRESS. PATIENT'S TELE MONITOR READS 63 BPM WITH INVERTED T-WAVE. PATIENT HAS A DAVIS IN WITH NO OUTPUT/ANURIC. WOUND CARE RENDERED. C.DIFF STOOL SAMPLE SENT TO LAB. NOTIFIED DR. DAVID OF PATIENT'S NPO STATUS AND ACCUCHECK OF 77 MG/DL AT 0530. ORDERED TO HAVE PREVIOUS IV FLUIDS IN D5 1/2 NS AT 50 ML/HR. HUNG PICC LINE PATENT AND INTACT WITH IVF ONGOING. CHARGE NURSE AWARE. BILATERAL SOFT WRIST RESTRAINTS ON, BEHAVIOR CHECK COMPLETED Q2H. SAFETY MEASURES IN PLACE: BED LOCKED AND IN LOWEST POSITION, CALL LIGHT WITHIN REACH, SIDE RAILS UP. WILL ENDORSE TO DAY SHIFT NURSE FOR VLADIMIR.
[2021-07-02 07:16] LABS: CREATININE 4.4 mg/dL (0.6-1.3); PHOSPHORUS 4.2 mg/dL (2.5-4.9); POTASSIUM 3.9 mmol/L (3.5-5.1)
[2021-07-02] MEDS ORDERED: IOHEXOL-350 100 ML VIAL IV ONE (08:08)
[2021-07-02] MEDS ORDERED: METOPROLOL TARTRATE INJ 5 MG/5 ML AMPUL ONE (08:09)
[2021-07-02] MEDS ORDERED: CT SWABBABLE VALVE TRANS SET 1 EA INFUS.SET MC ONE (08:09)
[2021-07-02] MEDS ORDERED: IV NS 0.9% 250 ML IV ONE (08:09)
[2021-07-02] MEDS ORDERED: NITROGLYCERIN 0.4 MG/TAB BOTTLE ONE (08:09)
--- NOTE | 2021-07-02 08:30 | NUR ---
CANDLE EXTRUSION MACHINE OPERATOR NOTES PT SENT FOR CT ANGIO WITH CONTRAST. CONSENT IS SIGNED AND IN THE CHART. PT TO RECEIVE HEMODIALYSIS FOLLOWING PROCEDURE.
[2021-07-02] MEDS ORDERED: NITROGLYCERIN 0.4 MG/TAB BOTTLE SL ONE (09:00)
[2021-07-02] MEDS ORDERED: METOPROLOL TARTRATE INJ 5 MG/5 ML AMPUL IVP PRN (09:00)
--- NOTE | 2021-07-02 09:30 | NUR ---
METALLURGICAL TESTER NOTES PT RETURNED FROM CT [facility] WITH NO EVIDENCE OF BLEEDING. V/S T-97.8; O2 SAT 100%; HR-59; BP 159/81
[2021-07-02] MEDS: SEVELAMER CARBONATE 800 MG POWD.PACK GT SCH ×3 (09:48→18:39)
[2021-07-02] MEDS: PANTOPRAZOLE 40 MG/PACK PACK PO SCH (09:48)
[2021-07-02] MEDS: TAMSULOSIN 0.4 MG CAP.SR.24H PO SCH (09:49)
[2021-07-02] MEDS: ENSURE ENLIVE 237 ML LIQUID (VANILLA) PO SCH ×2 (09:52→17:00)
[2021-07-02] MEDS: RIFAMPIN 300 MG CAPSULE GT SCH (09:52)
[2021-07-02] MEDS: HEPARIN SODIUM, PORCINE 5000 UNITS/1 ML VIAL SQ SCH ×2 (09:54→21:39)
[2021-07-02] MEDS: Z GUARD REMEDY 2 OZ OINT TP SCH (09:56)
--- NOTE | 2021-07-02 10:19 | NUR ---
SECONDARY TEACHER NOTES PT RECEIVING HEMODIALYSIS, ANTIBIOTIC HELD. WILL GIVE FOLLOWING DIALYSIS.
--- NOTE | 2021-07-02 12:14 | NUR ---
relayed cta result per dr. rasheed hold discharge pt. need aicd per dr. franklin.
[2021-07-02] MEDS: NIFEdipine XL (30MG) 30 MG TAB PO SCH (15:09)
--- NOTE | 2021-07-02 16:24 | NUR ---
seen and examined by dr. shelton no indication for aicd,dr. franklin notified and cancelled procedure and ok to discharge pt. with life vest,dr. rasheed made aware,case management made aware.
--- NOTE | 2021-07-02 16:26 | NUR ---
will discharge once life vest available,will continue to follow.
--- NOTE | 2021-07-02 16:26 | NUR ---
per cm pt. insurance [employer] will arrange for life vest to be delivered.
--- NOTE | 2021-07-02 18:55 | NUR ---
GL ACCOUNTANT NOTES PT CLEARED FOR DISCHARGE PER MD. AWAITING LIFE VEST AND THEN PT CAN GO BACK TO [facility].
--- NOTE | 2021-07-02 20:00 | NUR ---
RN NOTE RECEIVED PT IN BED, ALERT ORIENTED X 1-2. NOT IN ANY DISTRESS. ON O2 AT 2L VIA NC. DENIES PAIN OR SOB. PT ON TELE MONITORING SHOWS SR WITH INVERTED T WAVE. PICC LINE PATENT AND INTACT, FLUSHES WELL ON D51/2 NS AT 50ML/HR. LCHEST HD CATH INTACT, DRESSING CLEAN AND DRY. DAVIS IN PLACE, NO OUTPUT NOTED. WILL CONTINUE TO MONITOR. ALL SAFETY ON PLACE.
[2021-07-02] MEDS: ACETAMINOPHEN 325 MG TABLET PO PRN (21:53)
[2021-07-02] MEDS: INSULIN REGULAR, HUMAN 100 UNIT/ML 3 ML VIAL SQ PRN (23:50)
[2021-07-03] VITALS: BP 103/48
--- NOTE | 2021-07-03 00:15 | NUR ---
RN NOTE PT NOTED WITH WATERY DIARRHEA, PENDING CDIFF RESULTS. NOTED WITH REDNESS ON PERIANAL. WILL CONTINUE TO MONITOR.
[2021-07-03] MEDS: PIPERACILLIN /TAZOBACTAM 2.25 G in IV D5W 50 ML IV SCH ×2 (01:57→09:58)
[2021-07-03 04:30] VITALS: BP 169/78
[2021-07-03] MEDS: hydrALAZINE HCL IV 20 MG VIAL IV PRN (04:48)
[2021-07-03] MEDS: VANCOMYCIN HCL 125 MG/2.5 ML ORAL.SUSP GT SCH ×3 (05:42→17:18)
[2021-07-03] MEDS: BLOOD SUGAR DIAGNOSTIC 1 EACH STRIP IN SCH ×3 (05:50→17:15)
[2021-07-03] MEDS: INSULIN REGULAR, HUMAN 100 UNIT/ML 3 ML VIAL SQ PRN (05:51)
--- NOTE | 2021-07-03 06:50 | NUR ---
RN NOTE PT REMAINS IN BED. SLEEPING AROUSES EASILY TO STIMULI. TOLERATING O2 THERAPY AT 2L. NO SIGNS OF DISTRESS NOTED. DENIES SOB AND PAIN AT THIS TIME. PT NOTED WITH 2 EPISODES OF BM. 10ML URINE OUTPUT FROM DAVIS. PT CONTINUE ON IV FLUIDS OF D51/2 NS. PICC LINE REMAIN INTACT. NO SIGNS OF INFILTRATION NOTED. PT FSBS AT 84. ALL SAFETY MEASURES MAINTAINED. WILL ENDORSE TO NEXT SHIFT NURSE FOR VLADIMIR. PT AWAITING FOR LIFE VEST TO BE DC BACK TO SNF.
--- NOTE | 2021-07-03 07:25 | NUR ---
RN NOTE BP WENT DOWN TO 151/77 AFTER HYDRALAZINE WAS GIVEN.
--- NOTE | 2021-07-03 07:49 | NUR ---
REFRACTORY PRODUCTS SUPERVISOR NOTE PATIENT IN BED , ALL NEEDS ATTENDED, ON 2L NC NO SOB NOTED AT THIS TIME, ON TELE MONITOR SR HR 75, WITH DAVIS CATH TO GRAVITY NO URINE OUTPUT NOTED AT THIS TIME, RT UPPER ARM PICC LINE IN PLCE ,ON IVF ORDERED, BED IN LOWEST AND LOCKED POSITION , CALL LIGHT WITHIN REACH , WILL MONITOR CLOSELY
[2021-07-03 08:00] VITALS: BP 135/65
[2021-07-03] MEDS: RIFAMPIN 300 MG CAPSULE GT SCH (08:07)
[2021-07-03] MEDS: SEVELAMER CARBONATE 800 MG POWD.PACK GT SCH ×3 (08:07→17:18)
[2021-07-03] MEDS: PANTOPRAZOLE 40 MG/PACK PACK PO SCH (08:08)
[2021-07-03] MEDS: HEPARIN SODIUM, PORCINE 5000 UNITS/1 ML VIAL SQ SCH (08:08)
[2021-07-03] MEDS: ENSURE ENLIVE 237 ML LIQUID (VANILLA) PO SCH ×2 (08:09→16:14)
[2021-07-03] MEDS: TAMSULOSIN 0.4 MG CAP.SR.24H PO SCH (08:09)
[2021-07-03] MEDS: NIFEdipine XL (30MG) 30 MG TAB PO SCH (08:09)
[2021-07-03] MEDS: Z GUARD REMEDY 2 OZ OINT TP SCH (08:22)
[2021-07-03 12:00] VITALS: BP 105/58
[2021-07-03] MEDS: IV D5/0.45 NACL 1,000 ML IV PRN (12:45)
--- NOTE | 2021-07-03 12:54 | NUR ---
LAB TECH NOTE DAVIS CATH IS REMOVED PER DR FRANKIE ROSEN
--- NOTE | 2021-07-03 14:23 | NUR ---
FORGE HEATER NOTE SPOKE WITH PERI TANGREEL OPERATOR ABOUT LIFE VEST ,NOT DELIVERED STATED WILL F\U WITH IT AND DISCHARGE TO SNF
[2021-07-03 16:00] VITALS: BP 105/60
--- NOTE | 2021-07-03 16:02 | NUR ---
tele rnnote per dr rasheed ok to discharge to snf , no life vest available yet per insurance ,still ok to discharge dr franklin notified about this
--- NOTE | 2021-07-03 16:31 | NUR ---
telecom coordinator note spoke with dr rasheed notified that bp 105/60 is still ok to discharge to snf , stated still ok to discharge will f\u
--- NOTE | 2021-07-03 18:02 | NUR ---
supervisor telephone clerks note charge nurse spoke with showcase maker margarette braden will be available about 1929, called to [facility] for report spoke with alona rn notified that patient has picc line ok to live picc line in [facility] , called paul mcdaniels left a message that patient will be transferred to snf
--- NOTE | 2021-07-03 18:34 | NUR ---
telephone switchboard operator note all needs attended on ivf as ordered keep clean dry, no sob noted, on 2l nc bed in lowest and locked position , will cont to monitor
--- NOTE | 2021-07-03 19:58 | NUR ---
TELE-1/CASING INSPECTOR PT DR. DAVID AND DR. REZA LANDRY TO DE PT BACK TO SNF WITHOUT LIFE VEST. PT IS A/Ox1 AND UNABLE TO FOLLOW THE COMMANDS NECESSARY TO USE THE VEST.
[2021-07-03 20:00] VITALS: BP 102/49
--- NOTE | 2021-07-03 20:56 | NUR ---
TELE-1/SOCIOLOGY ADJUNCT INSTRUCTOR PER CASE MANAGEMENT UNABLE TO SECURE DIALYSIS TRANSPORT FOR THE PT. WILL FOLLOW UP IN THE MORNING. PT WILL REMAIN HOSPITALIZED OVERNIGHT.
[2021-07-04] VITALS: BP 120/66
[2021-07-04] MEDS: VANCOMYCIN HCL 125 MG/2.5 ML ORAL.SUSP GT SCH ×4 (00:23→17:10)
[2021-07-04] MEDS: BLOOD SUGAR DIAGNOSTIC 1 EACH STRIP IN SCH ×4 (00:23→17:44)
[2021-07-04 04:00] VITALS: BP 156/74
--- NOTE | 2021-07-04 05:35 | NUR ---
BURRER HAND NOTES PATIENT IS FOR DISCHARGE TO SNF PER DOCTOR FRANKIE'S ORDER. FOR DISCHARGE TO [facility]. ENDORSED TO KITTY AVILA AT [facility]. DISCHARGE INSTRUCTION AND HOME MEDICATIONS PROVIDED. DISCHARGE FORM AND BELONGINGS LIST ACCOUNTED FOR. NAME WRIST BAND AND IV LINE REMOVED. PATIENT WAS PICKED UP BY AMBULANCE PERSONNEL IN STABLE CONDITION VIA GURNEY. CHARGE NURSE AND MD ARE AWARE OF THE DISCHARGE. Addendum: 07/04/21 at 1807 by LILA ESCOBAR RN ERROR.
--- NOTE | 2021-07-04 07:30 | NUR ---
CERNER ANALYST OPENING NOTES RECEIVED PATIENT RESTING ON BED AND A/O X 1-2, AROUSES EASILY TO STIMULI. ON O2 AT 2LPM TOLERATING WELL. NO SOB NOTED. NOT IN DISTRESS. WITH NO COMPLAINTS OF PAIN OR DISCOMFORT AT THIS TIME. WITH IV ACCESS AT LEFT UPPER ARM PICC LINE WITH IVF D5 1/2NS AT 50ML/HR, INTACT AND INFUSING WELL. ON TELE MONITOR CURRENTLY READING SINUS RHYTHM WITH INVERTED T-WAVE. SAFETY MEASURES IN PLACE. CALL LIGHT WITHIN REACH. BED ON LOWEST AND LOCKED POSITION. SIDE RAILS UP X2. WILL CONTINUE TO MONITOR.
[2021-07-04 08:00] VITALS: BP 137/73
[2021-07-04] MEDS: SEVELAMER CARBONATE 800 MG POWD.PACK GT SCH ×3 (08:00→17:10)
[2021-07-04] MEDS: TAMSULOSIN 0.4 MG CAP.SR.24H PO SCH (08:01)
[2021-07-04] MEDS: RIFAMPIN 300 MG CAPSULE GT SCH (08:01)
[2021-07-04] MEDS: PANTOPRAZOLE 40 MG/PACK PACK PO SCH (08:04)
[2021-07-04] MEDS: ENSURE ENLIVE 237 ML LIQUID (VANILLA) PO SCH ×2 (08:05→17:33)
[2021-07-04] MEDS: Z GUARD REMEDY 2 OZ OINT TP SCH (08:06)
[2021-07-04] MEDS: NIFEdipine XL (30MG) 30 MG TAB PO SCH (08:07)
[2021-07-04 12:00] VITALS: BP 111/70
[2021-07-04 16:00] VITALS: BP 137/73
--- NOTE | 2021-07-04 17:35 | NUR ---
TREND INVESTIGATOR NOTES PATIENT IS FOR DISCHARGE TO SNF PER DOCTOR FRANKIE'S ORDER. FOR DISCHARGE TO [facility]. ENDORSED TO RN [place] AT [facility]. DISCHARGE INSTRUCTION AND HOME MEDICATIONS PROVIDED. DISCHARGE FORM AND BELONGINGS LIST ACCOUNTED FOR. NAME WRIST BAND AND IV LINE REMOVED. PATIENT WAS PICKED UP BY AMBULANCE PERSONNEL IN STABLE CONDITION VIA GURNEY. CHARGE NURSE AND MD ARE AWARE OF THE DISCHARGE.
== END 2021-07-04 17:37 | DRG 207 ==
LOC: ER 08:17 → TRANSITION 10:41 → ICU 11:15 → TELE1 07-01 11:13
PROVIDERS: ADMIT Internal Medicine; ATTEND Internal Medicine
PROC: 5A1955Z Respiratory Ventilation, Greater than 96 Consecutive Hours (ICD-10-PCS; principal; 2021-06-26)
PROC: 0BH18EZ Insertion of Endotracheal Airway into Trachea, Via Natural or Artificial Opening Endoscopic (ICD-10-PCS; 2021-06-26)
PROC: 5A2204Z Restoration of Cardiac Rhythm, Single (ICD-10-PCS; 2021-06-26)
PROC: 5A1D70Z Performance of Urinary Filtration, Intermittent, Less than 6 Hours Per Day (ICD-10-PCS; 2021-06-26)
PROC: 02HV33Z Insertion of Infusion Device into Superior Vena Cava, Percutaneous Approach (ICD-10-PCS; 2021-06-26)
PROC: B548ZZA Ultrasonography of Superior Vena Cava, Guidance (ICD-10-PCS; 2021-06-26)
DX: J69.0 Pneumonitis due to inhalation of food and vomit (principal); J96.01 Acute respiratory failure with hypoxia; I46.8 Cardiac arrest due to other underlying condition; N18.6 End stage renal disease; I46.9 Cardiac arrest, cause unspecified; I12.0 Hypertensive chronic kidney disease with stage 5 chronic kidney disease or end stage renal disease; A04.71 Enterocolitis due to Clostridium difficile, recurrent; G93.1 Anoxic brain damage, not elsewhere classified; I47.2 Ventricular tachycardia; E87.2 Acidosis; E87.5 Hyperkalemia; K74.60 Unspecified cirrhosis of liver; Z20.822 Contact with and (suspected) exposure to COVID-19; D63.1 Anemia in chronic kidney disease; Z99.2 Dependence on renal dialysis; E78.5 Hyperlipidemia, unspecified; Z79.4 Long term (current) use of insulin; Z79.899 Other long term (current) drug therapy; I27.20 Pulmonary hypertension, unspecified; I70.0 Atherosclerosis of aorta; M89.9 Disorder of bone, unspecified; N40.0 Benign prostatic hyperplasia without lower urinary tract symptoms; E87.70 Fluid overload, unspecified; E83.52 Hypercalcemia; I25.10 Atherosclerotic heart disease of native coronary artery without angina pectoris; Z86.14 Personal history of Methicillin resistant Staphylococcus aureus infection; L89.156 Pressure-induced deep tissue damage of sacral region; Z79.2 Long term (current) use of antibiotics
CPT/HCPCS: 31720; 36415; 36569; 36600; 71045-TC; 75574; 80048-TC; 80053-TC; 80076-TC; 82140-TC; 82803-TC; 82962-TC; 83605-TC; 83735-TC; 83970; 84100-TC; 84443-TC; 84478-TC; 84484-TC; 85025-TC; 85730-TC; 86706; 86850-TC; 87040-TC; 87081-TC; 87340; 90935-TC; 92526; 92611-TC; 93307-TC; 94002-TC; 94003-TC; 94760-TC; 94762-TC; 94799-TC; 97112-TC; 97530-TC; 99082-TC; A4216; A6253; G0378; J0171; J0282; J0360; J0885; J1644; J1815; J2001; J2060; J2543; J2690; J3475; J3480; J3490; J7030; J7050; J7060; Q9967; U0003